=== PATIENT | male | born 1965 | race Two or more races ===

== ENCOUNTER 2021-10-26 16:03 | Emergency (ER) | payer OTHER ==
[~2021-10-26] VITALS: Ht 175.3 cm; Wt 80.0 kg
--- NOTE | 2021-10-26 16:34 | RAD ---
Exam performed: X-ray left third digit. HISTORY: Laceration. DATE OF SERVICE: 10/26/2021. COMPARISON: None available FINDINGS: Single AP view of the hand and AP and lateral view of the third digit is obtained. There is a fractur e involving the base of the distal phalanx with a comminuted fracture distal tuft of the distal phala nx of third digit. There is a soft tissue laceration. No foreign body. IMPRESSION: Comminuted fracture distal phalanx of the third digit with soft tissue laceration. Electronically signed by: Petrona Huang MD (10/26/2021 4:32 PM) [facility]
[2021-10-26] MEDS ORDERED: LIDOCAINE 2%/EPI 1:100,000 20 ML VIAL. IJ ONE (16:45)
[2021-10-26] MEDS ORDERED: DIPHTH,PERTUSS(ACELL),TET TOX 0.5 ML DISP.SYRIN. VAX IM ONE (17:00)
[2021-10-26] MEDS ORDERED: ACETAMINOPHEN 325 MG TABLET PO ONE (17:00)
[2021-10-26] MEDS ORDERED: HYDR-2155 PO (17:58)
[2021-10-26] MEDS ORDERED: CEPH500T PO (17:58)
--- NOTE | 2021-10-26 18:00 | PHYS DOC ---
Past History Past Surgical History: No Surgical History (STEVE BULLARD APRN) Alcohol Use: None (STEVE BULLARD APRN) General Adult EDM: Chief Complaint: LACERATION/AVULSION HPI: HPI: Patient is a 56-year-old male who presents with laceration to left, middle finger. Patient states he was using a table saw when he excellently cut his finger. Bleeding was controlled on arrival. Last tetanus was less than a year ago. Patient has sensation and range of motion intact. Denies medical history. (STEVE BULLARD APRN) Review of Systems: Review of Systems: ROS At least 10 ROS systems have been reviewed and are negative except as documented in the HPI. General: Negative except as outlined in HPI above. Skin: Negative except as outlined in HPI above. HEENT: Negative except as outlined in HPI above. Neck: Negative except as outlined in HPI above. Respiratory: Negative except as outlined in HPI above.. Cardiovascular: Negative except as outlined in HPI above. Abdomen: Negative except as outlined in HPI above. : Negative except as outlined in HPI above. Back/MSK: Negative except as outlined in HPI above. Neuro: Negative except as outlined in HPI above. Psych: Negative except as outlined in HPI above. (STEVE BULLARD APRN) Current Medications: Current Meds: Current Medications Medications (Trade) Dose Ordered Sig/Jay Start Time Stop Time Status Last Admin Dose Admin Acetaminophen (Tylenol) 650 mg 1X ONCE 10/26/21 17:00 10/26/21 17:01 DC 10/26/21 16:50 650 MG Diphtheria/ Tetanus/Acell Pertussis (Boostrix) 0.5 ml ONCE ONCE 10/26/21 17:00 10/26/21 17:01 DC Lidocaine/ Epinephrine (Xylocaine 2%-Epi 1:100,000) 20 ml 1X ONCE 10/26/21 16:45 10/26/21 16:46 DC 10/26/21 16:45 20 ML (STEVE BULLARD APRN) Allergies: Allergies: Allergies Coded Allergies Type Severity Reaction Last Updated Verified No Known Drug Allergies 10/26/21 No (STEVE BULLARD APRN) Physical Exam: PE: Constitutional: Well developed, well nourished, no acute distress, non-toxic appearance. [] HENT: Normocephalic, atraumatic, bilateral external ears normal, oropharynx moist, no oral exudates, nose normal. [] Eyes: PERRLA, EOMI, conjunctiva normal, no discharge. [] Neck: Normal range of motion, no tenderness, supple, no stridor. [] Cardiovascular:Heart rate regular rhythm, no murmur [] Lungs & Thorax: Bilateral breath sounds clear to auscultation [] Abdomen: Bowel sounds normal, soft, no tenderness, no masses, no pulsatile masses. [] Skin: Laceration to left, middle finger. Back: No tenderness, no CVA tenderness. [] Extremities: Left middle finger tenderness, laceration and swelling to the finger. Sensation intact. Range of motion intact. Neurologic: Alert and oriented X 3, normal motor function, normal sensory function, no focal deficits noted. [] Psychologic: Affect normal, judgement normal, mood normal. [] (STEVE BULLARD APRN) Current Patient Data: Vital Signs: Vital Signs Date Time Temp Pulse Resp B/P (MAP) Pulse Ox O2 Delivery O2 Flow Rate FiO2 10/26/21 16:12 97.9 80 18 180/100 (126) 98 Room Air (STEVE BULLARD APRN) EKG: EKG: [] (STEVE BULLARD APRN) Radiology/Procedures: Radiology/Procedures: []Exam performed: X-ray left third digit. HISTORY: Laceration. DATE OF SERVICE: 10/26/2021. COMPARISON: None available FINDINGS: Single AP view of the hand and AP and lateral view of the third digit is obtained. There is a fracture involving the base of the distal phalanx with a comminuted fracture distal tuft of the distal phalanx of third digit. There is a soft tissue laceration. No foreign body. IMPRESSION: Comminuted fracture distal phalanx of the third digit with soft tissue laceration. Electronically signed by: Petrona Huang MD (10/26/2021 4:32 PM) [facility] (STEVE BULLARD APRN) Heart Score: C/O Chest Pain: No Risk Factors: Risk Factors: DM, Current or recent (<one month) smoker, HTN, HLP, family history of CAD, obesity. Risk Scores: Score 0 - 3: 2.5% MACE over next 6 weeks - Discharge Home Score 4 - 6: 20.3% MACE over next 6 weeks - Admit for Clinical Observation Score 7 - 10: 72.7% MACE over next 6 weeks - Early Invasive Strategies (STEVE BULLARD APRN) Course & Med Decision Making: Course & Med Decision Making Pertinent Labs and Imaging studies reviewed. (See chart for details) [] 56-year-old male presents with laceration to the left, middle finger. Sensation and range of motion both intact. Wound was cleaned. Finger was numbed with lidocaine, 8, 50, sutures placed. Nonadherent dressing was placed with gauze and Coban. Discussed keeping the wound clean and dry. Patient was sent home with antibiotic and pain medication. Advised patient to follow-up in 7 to 10 days with his PCP and have a wound check and sutures removed. (STEVE BULLARD APRN) Dragon Disclaimer: Dragon Disclaimer: This electronic medical record was generated, in whole or in part, using a voice recognition dictation system. (STEVE BULLARD APRN) Laceration Repair Lac Repair Indication: Laceration to left, middle finger Procedure: The patient was placed in the appropriate position and anesthesia around the left, fingertip was numbed with lidocaine. The area was then cleaned. The laceration was closed, 50. The wound area was then dressed with nonadhesive dressing, gauze and Curlex. Total repaired wound length: 2 cm Other Items: N/A The patient tolerated the procedure well Complications: N/A (STEVE BULLARD APRN) Attending Co-Sign The patient was seen and interviewed as well as examined at the bedside. The chart was reviewed. The case was discussed. Agree with the plan of care. (NOAH SNIDER DO) Departure Departure: Impression: Primary Impression: Laceration Disposition: 01 HOME / SELF CARE / HOMELESS Condition: STABLE Referrals: DUNG LEMON (PCP) Patient Instructions: Fingertip Laceration Additional Instructions: You were seen emergency room for a laceration to your left, middle finger. Sending you home with pain medication and antibiotic. Please keep the wound clean and dry. Follow-up in 7 to 10 days with your PCP for a wound check and suture removal. EMERGENCY DEPARTMENT GENERAL DISCHARGE INSTRUCTIONS Thank you for coming to [facility] (ED) today and trusting us with you care. We trust that you had a positivie experience in our Emergency Department. If you wish to speak to the department management, you may call the director at [phone]. YOUR FOLLOW UP INSTRUCTIONS ARE FOLLOWS: 1. Do you have a private Doctor? If you do not have a private doctor, please ask for a resource list of physicians or clinics that may be able to assist you with follow up care. 2. The Emergency Physician has interpreted your x-rays. The X-Ray specialist will also review them. If there is a change in the findings, you will be notified in 48 hours when at all possible. 3. A lab test or culture has been done, your results will be reviewed and you will be notified if you need a change in treatment. ADDITIONAL INSTRUCTIONS AND INFORMATION: 1. Your care today has been supervised by a physician who is specially trained in emergency care. Many problems require more than one evaluation for a complete diagnosis and treatment. We recommend that you schedule your follow up appointment as recommended to ensure complete treatment of you illness or injury. If you are unable to obtain follow up care and continue to have a problem, or if your condition worsens, we recommend that you return to the ED. 2. We are not able to safely determine your condition over the phone nor are we able to give sound medical advice over the phone. For these safety reasons, if you call for medical advice we will ask you to come to the ED for further evaluation. 3. If you have any questions regarding these discharge instructions please call the ED at [phone]. SAFETY INFORMATION: In the interest of safety, wellness, and injury prevention; we encourage you to wear your sealbelt, if you smoke; quite smoking, and we encourage family to use a protective helmet for bicycling and other sporting events that present an increased risk for head injury. IF YOUR SYMPTOMS WORSEN OR NEW SYMPTOMS DEVELOP, OR YOU HAVE CONCERNS ABOUT YOUR CONDITION; OR IF YOUR CONDITION WORSENS WHILE YOU ARE WAITING FOR YOUR FOLLOW UP APPOINTMENT; EITHER CONTACT YOUR PRIMARY CARE DOCTOR, THE PHYSICIAN WHOSE NAME AND NUMBER YOU WERE GIVEN, OR RETURN TO THE ED IMMEDIATELY. Scripts Hydrocodone Bit/Acetaminophen (HYDROCODONE-APAP 5-325 ) 1 Each Tablet 0.5-1 TAB PO PRN Q6HRS PRN for PAIN for 3 Days, #12 TAB 0 Refills Prov: STEVE BULLARD [employer] ANALYST 10/26/21 Cephalexin (CEPHALEXIN) 500 Mg Tablet 1 TAB PO BID for laceration for 7 Days, #14 TAB Prov: STEVE BULLARD APRN 10/26/21 STEVE BULLARD APRN Oct 26, 2021 18:00 NOAH SNIDER DO Oct 27, 2021 06:18
[2021-10-26 18:22] VITALS: BP 131/81
[2021-10-26] MEDS ORDERED: HYDROcodone/APAP 5/325MG 1 TAB TABLET PO ONE (18:45)
[2021-10-26] MEDS ORDERED: CEPHALEXIN 250 MG CAPSULE PO ONE (18:45)
== END 2021-10-26 18:24 | disposition home or self-care (01) ==
LOC: ER 16:03
DX: S61.213A Laceration without foreign body of left middle finger without damage to nail, initial encounter (principal); W26.8XXA Contact with other sharp object(s), not elsewhere classified, initial encounter; Y93.89 Activity, other specified; Y92.89 Other specified places as the place of occurrence of the external cause; Y99.8 Other external cause status
CPT/HCPCS: 12001; 73140; 99284-25